=== PATIENT | male | born 1940 | race Caucasian/White ===

== ENCOUNTER 2020-10-05 17:07 | Inpatient (IN) | payer MEDICARE, BC ==
[~2020-10-05] VITALS: Ht 188 cm; Wt 83.0 kg
[2020-10-05 04:00] VITALS: BP 125/72
[2020-10-05] MEDS ORDERED: ONDANSETRON HCL/PF 4 MG/2 ML VIAL IVP ONE (17:30)
[2020-10-05] MEDS ORDERED: MORPHINE SULFATE INJ 2 MG/ML DISP.SYRIN IV ONE (17:30)
[2020-10-05] MEDS ORDERED: ONDANSETRON HCL/PF 4 MG/2 ML VIAL ONE (17:39)
[2020-10-05] MEDS ORDERED: MORPHINE SULFATE INJ 4 MG/ML DISP.SYRIN ONE (17:40)
[2020-10-05 18:04] LABS: BASOPHILS # (AUTO) 0.1 /CMM (0.0-0.2); BASOPHILS % (AUTO) 0.4 % (0.0-2.0); EOSINOPHILS % (AUTO) 0.6 % (0.0-6.0); HEMATOCRIT 42 % (39-51); HEMOGLOBIN 14.1 g/dL (13.5-17.5); LYMPHOCYTES # (AUTO) 1.6 /CMM (0.8-4.8); LYMPHOCYTES % (AUTO) 11.6 % (20.0-44.0); MEAN CORPUSCULAR HGB CONC 34 g/dl (31.0-36.0); MEAN CORPUSCULAR VOLUME 89 fL (80-96); MONOCYTES # (AUTO) 0.6 /CMM (0.1-1.30); MONOCYTES % (AUTO) 4.4 % (2.0-12.0); NEUTROPHILS # (AUTO) 11.2 /CMM (1.8-8.9); PLATELET COUNT (AUTO) 133 /CMM (150-450); RED BLOOD CELL COUNT(AUTO) 4.74 MIL/uL (4.5-6.0); WHITE BLOOD COUNT (AUTO) 13.5 K/uL (4.3-11.0)
[2020-10-05 18:22] LABS: CALCIUM, SERUM 9.8 mg/dL (8.5-10.1); CARBON DIOXIDE 24 mmol/L (21-32); CHLORIDE 109 mmol/L (98-107); CREATININE 1.2 mg/dL (0.6-1.3); GLUCOSE 162 mg/dL (74-106); POTASSIUM 4.3 mmol/L (3.5-5.1); SODIUM SERUM 145 mmol/L (136-145); UREA NITROGEN, BLOOD 29 mg/dL (7-18)
[2020-10-05] MEDS ORDERED: HYDROMORPHONE 1 MG/1 ML DISP.SYRIN ONE (19:54)
[2020-10-05] MEDS ORDERED: HYDROMORPHONE 1 MG/1 ML DISP.SYRIN IV ONE (20:30)
[2020-10-05 21:10] VITALS: BP 165/91
[2020-10-06] VITALS (12 sets, daily range): BP systolic 83–125; BP diastolic 61–79
[2020-10-06] MEDS ORDERED: ACETAMINOPHEN 325 MG TABLET PO PRN (00:30)
[2020-10-06] MEDS ORDERED: ZOLPIDEM TARTRATE 5 MG TABLET PO PRN (00:30)
[2020-10-06] MEDS ORDERED: Z GUARD REMEDY 2 OZ OINT TP PRN (00:30)
[2020-10-06] MEDS ORDERED: MAGNESIUM HYDROXIDE 30 ML UDC PO PRN (00:30)
[2020-10-06] MEDS ORDERED: ONDANSETRON HCL/PF 4 MG/2 ML VIAL IVP PRN (00:30)
[2020-10-06] MEDS ORDERED: MORPHINE SULFATE INJ 2 MG/ML DISP.SYRIN IV PRN (00:30)
[2020-10-06] MEDS: IV NS 0.9% 1,000 ML IV PRN ×2 (01:33→17:17)
[2020-10-06] MEDS: HYDROMORPHONE 1 MG/1 ML DISP.SYRIN IV PRN ×3 (02:27→11:50)
[2020-10-06] MEDS ORDERED: SEVOFLURANE 250 ML BOTTLE IH ONE (11:46)
[2020-10-06] MEDS ORDERED: BACITRACIN 50000 UNITS/VIAL ONE (11:46)
[2020-10-06] MEDS ORDERED: BUPIVACAINE 0.5 % PF 150 MG/30 ML VIAL ONE (11:46)
[2020-10-06] MEDS ORDERED: ANESTHESIA TRAY IN PYXIS 1 EA TRAY MC ONE (14:56)
[2020-10-06] MEDS ORDERED: FENTANYL PF 100MCG/2ML AMPUL ONE (15:47)
[2020-10-06] MEDS ORDERED: MIDAZOLAM HCL 2 MG/2ML VIAL ONE (15:47)
[2020-10-06] MEDS ORDERED: HYDROMORPHONE INJ 2 MG/ML DISP.SYRIN ONE (15:48)
[2020-10-07] VITALS: BP 104/73
[2020-10-07] MEDS: ANCEF 1 GM/50 ML D5W IV SCH ×2 (00:05→08:27)
[2020-10-07] MEDS: HYDROCODONE/APAP 5/325MG TABLET PO PRN ×2 (02:30→23:29)
[2020-10-07 04:00] VITALS: BP 125/72
[2020-10-07] MEDS: HYDROMORPHONE 1 MG/1 ML DISP.SYRIN IV PRN ×4 (05:08→17:43)
[2020-10-07 06:04] LABS: BASOPHILS % (AUTO) 0.1 % (0.0-2.0); HEMATOCRIT 27 % (39-51); HEMOGLOBIN 8.9 g/dL (13.5-17.5); LYMPHOCYTES # (AUTO) 1.2 /CMM (0.8-4.8); LYMPHOCYTES % (AUTO) 9.7 % (20.0-44.0); MEAN CORPUSCULAR HGB CONC 33 g/dl (31.0-36.0); MEAN CORPUSCULAR VOLUME 91 fL (80-96); MONOCYTES # (AUTO) 1.2 /CMM (0.1-1.30); MONOCYTES % (AUTO) 10.3 % (2.0-12.0); NEUTROPHILS # (AUTO) 9.6 /CMM (1.8-8.9); NEUTROPHILS % (AUTO) 79.9 % (43.0-81.0); PLATELET COUNT (AUTO) 101 /CMM (150-450); RED BLOOD CELL COUNT(AUTO) 2.95 MIL/uL (4.5-6.0)
[2020-10-07 07:14] LABS: ALANINE AMINOTRANSFERASE 16 U/L (12-78); ALBUMIN 2.6 g/dL (3.4-5.0); ALKALINE PHOSPHATASE 171 U/L (46-116); ASPARTATE AMINOTRANSFERASE 49 U/L (15-37); BILIRUBIN,TOTAL 0.5 mg/dL (0.2-1.0); CALCIUM, SERUM 7.9 mg/dL (8.5-10.1); CARBON DIOXIDE 19 mmol/L (21-32); CHLORIDE 111 mmol/L (98-107); CREATININE 1.6 mg/dL (0.6-1.3); GLUCOSE 124 mg/dL (74-106); PHOSPHORUS 3.5 mg/dL (2.5-4.9); POTASSIUM 4.1 mmol/L (3.5-5.1); SODIUM SERUM 143 mmol/L (136-145); UREA NITROGEN, BLOOD 40 mg/dL (7-18)
[2020-10-07 07:57] LABS: IRON, SERUM 17 ug/dl (50-175); TOTAL IRON BINDING CAPACITY 197 ug/dl (250-450)
[2020-10-07 08:00] VITALS: BP 170/80
[2020-10-07] MEDS: ASPIRIN 325 MG TABLET PO SCH (08:27)
[2020-10-07] MEDS: ENOXAPARIN SODIUM 40 MG/0.4 ML DISP.SYRIN SQ SCH (08:29)
[2020-10-07] MEDS: IV NS 0.9% 1,000 ML IV PRN (08:58)
[2020-10-07 09:01] LABS: FERRITIN 173 ng/mL (8-388)
[2020-10-07 09:41] LABS: PROSTATE SPECIFIC ANTIGEN SCR 319.12 ng/mL (0.00-4.00)
[2020-10-07] MEDS: MAG HYDROX/AL HYDROX/SIMETH 30 ML UDC PO PRN (10:09)
[2020-10-07 20:14] VITALS: BP 111/67
[2020-10-07 23:12] LABS: BILIRUBIN,URINE NEGATIVE (NEGATIVE); COLOR,URINE YELLOW (YELLOW); LEUKOCYTE ESTERASE ,URINE MODERATE (NEGATIVE); NITRITE, URINE NEGATIVE (NEGATIVE); PH,URINE 5.5 (5.0-8.0); PROTEIN,URINE 30 mg/dl (NEGATIVE); UGLUCOSE NEGATIVE (NEGATIVE); UROBILINOGEN,URINE 0.2 EU/dL (0.2)
[2020-10-07 23:22] LABS: URINE TOTAL PROTEIN 56.6 mg/dL (0-11.9)
[2020-10-07 23:31] LABS: BACTERIA,URINE Moderate /HPF (None Seen); MUCUS,URINE Few /LPF (None Seen); RBC,URINE 21-50 /HPF (0-2); SQUAMOUS EPITHELIAL CELL,UR Few /HPF (None Seen); WBC,URINE 51-80 /HPF (0-3)
[2020-10-08 00:12] LABS: CALCIUM OXALATE CRYSTALS,UR Many /HPF (None Seen); EOSINOPHIL,URINE None Seen
[2020-10-08] MEDS: IV NS 0.9% 1,000 ML IV PRN ×2 (04:06→16:56)
[2020-10-08 07:30] LABS: ALBUMIN 2.4 g/dL (3.4-5.0); CALCIUM, SERUM 7.9 mg/dL (8.5-10.1); CREATININE 1.2 mg/dL (0.6-1.3); POTASSIUM 3.6 mmol/L (3.5-5.1); TOTAL PROTEIN, SERUM 5.1 g/dL (6.4-8.2)
[2020-10-08 08:00] VITALS: BP 118/64
[2020-10-08] MEDS: ASPIRIN 325 MG TABLET PO SCH (08:05)
[2020-10-08] MEDS: ENOXAPARIN SODIUM 40 MG/0.4 ML DISP.SYRIN SQ SCH (08:06)
[2020-10-08 08:38] LABS: BASOPHILS % (AUTO) 0.4 % (0.0-2.0); EOSINOPHILS % (AUTO) 0.3 % (0.0-6.0); HEMATOCRIT 24 % (39-51); HEMOGLOBIN 8.1 g/dL (13.5-17.5); LYMPHOCYTES % (AUTO) 10.8 % (20.0-44.0); MEAN CORPUSCULAR HGB CONC 33 g/dl (31.0-36.0); MEAN CORPUSCULAR VOLUME 92 fL (80-96); MONOCYTES # (AUTO) 0.8 /CMM (0.1-1.30); MONOCYTES % (AUTO) 8.4 % (2.0-12.0); NEUTROPHILS # (AUTO) 7.7 /CMM (1.8-8.9); NEUTROPHILS % (AUTO) 80.1 % (43.0-81.0); PLATELET COUNT (AUTO) 86 /CMM (150-450); RED BLOOD CELL COUNT(AUTO) 2.65 MIL/uL (4.5-6.0); WHITE BLOOD COUNT (AUTO) 9.7 K/uL (4.3-11.0)
[2020-10-08] MEDS: HYDROMORPHONE 1 MG/1 ML DISP.SYRIN IV PRN (09:47)
[2020-10-08] MEDS: ENSURE ENLIVE 237 ML LIQUID (VANILLA) PO SCH ×2 (13:07→16:23)
[2020-10-08] MEDS: SOD FERRIC GLUC 125 MG in IV NS 0.9% 100 ML IV SCH (14:40)
[2020-10-08 16:00] VITALS: BP 143/78
[2020-10-08 20:00] VITALS: BP 122/71
[2020-10-08] MEDS: HYDROCODONE/APAP 5/325MG TABLET PO PRN (20:46)
[2020-10-08] MEDS: MAG HYDROX/AL HYDROX/SIMETH 30 ML UDC PO PRN (23:00)
[2020-10-09 05:07] LABS: PTH, INTACT 14 pg/mL (15-65)
[2020-10-09] MEDS: IV NS 0.9% 1,000 ML IV PRN (05:34)
[2020-10-09 06:25] LABS: BASOPHILS % (AUTO) 0.2 % (0.0-2.0); EOSINOPHILS % (AUTO) 0.2 % (0.0-6.0); HEMATOCRIT 23 % (39-51); HEMOGLOBIN 7.9 g/dL (13.5-17.5); LYMPHOCYTES # (AUTO) 1.1 /CMM (0.8-4.8); LYMPHOCYTES % (AUTO) 10.2 % (20.0-44.0); MEAN CORPUSCULAR HGB CONC 35 g/dl (31.0-36.0); MEAN CORPUSCULAR VOLUME 89 fL (80-96); MONOCYTES # (AUTO) 0.8 /CMM (0.1-1.30); MONOCYTES % (AUTO) 7.9 % (2.0-12.0); NEUTROPHILS # (AUTO) 8.5 /CMM (1.8-8.9); NEUTROPHILS % (AUTO) 81.5 % (43.0-81.0); PLATELET COUNT (AUTO) 98 /CMM (150-450); RED BLOOD CELL COUNT(AUTO) 2.56 MIL/uL (4.5-6.0); WHITE BLOOD COUNT (AUTO) 10.5 K/uL (4.3-11.0)
[2020-10-09 06:38] LABS: CALCIUM, SERUM 7.6 mg/dL (8.5-10.1); PHOSPHORUS 1.7 mg/dL (2.5-4.9); POTASSIUM 3.6 mmol/L (3.5-5.1)
[2020-10-09] MEDS: HYDROCODONE/APAP 5/325MG TABLET PO PRN ×2 (07:37→08:42)
[2020-10-09 08:00] VITALS: BP 144/83
[2020-10-09] MEDS: ENSURE ENLIVE 237 ML LIQUID (VANILLA) PO SCH ×2 (08:15→16:23)
[2020-10-09] MEDS: ASPIRIN 325 MG TABLET PO SCH (08:18)
[2020-10-09] MEDS: ENOXAPARIN SODIUM 40 MG/0.4 ML DISP.SYRIN SQ SCH (08:41)
[2020-10-09] MEDS: NEUTRA PHOS 1 POWD.PACKET PO SCH ×2 (09:18→16:23)
[2020-10-09] MEDS ORDERED: MAG HYDROX/AL HYDROX/SIMETH 30 ML UDC PO PRN (10:00)
[2020-10-09] MEDS: MAG HYDROX/AL HYDROX/SIMETH 30 ML UDC PO PRN ×2 (10:04→20:48)
[2020-10-09] MEDS: SOD FERRIC GLUC 125 MG in IV NS 0.9% 100 ML IV SCH (14:00)
[2020-10-09 16:00] VITALS: BP 113/63
[2020-10-09 20:00] VITALS: BP 123/69
[2020-10-10 06:29] LABS: ALBUMIN 1.8 g/dL (3.4-5.0); BILIRUBIN,TOTAL 1.3 mg/dL (0.2-1.0); CALCIUM, SERUM 7.8 mg/dL (8.5-10.1); CREATININE 0.8 mg/dL (0.6-1.3); PHOSPHORUS 1.8 mg/dL (2.5-4.9); POTASSIUM 3.9 mmol/L (3.5-5.1); TOTAL PROTEIN, SERUM 4.7 g/dL (6.4-8.2)
[2020-10-10 07:27] LABS: BASOPHILS % (AUTO) 0.5 % (0.0-2.0); EOSINOPHILS % (AUTO) 1.9 % (0.0-6.0); LYMPHOCYTES # (AUTO) 0.9 /CMM (0.8-4.8); LYMPHOCYTES % (AUTO) 11.4 % (20.0-44.0); MEAN CORPUSCULAR HGB CONC 34 g/dl (31.0-36.0); MEAN CORPUSCULAR VOLUME 90 fL (80-96); MONOCYTES # (AUTO) 0.6 /CMM (0.1-1.30); MONOCYTES % (AUTO) 7.4 % (2.0-12.0); NEUTROPHILS # (AUTO) 6.5 /CMM (1.8-8.9); NEUTROPHILS % (AUTO) 78.8 % (43.0-81.0); PLATELET COUNT (AUTO) 127 /CMM (150-450); RED BLOOD CELL COUNT(AUTO) 2.23 MIL/uL (4.5-6.0); WHITE BLOOD COUNT (AUTO) 8.2 K/uL (4.3-11.0)
[2020-10-10 07:35] LABS: HEMATOCRIT 20 % (39-51)
[2020-10-10 07:37] LABS: HEMOGLOBIN 6.9 g/dL (13.5-17.5)
[2020-10-10] MEDS ORDERED: NEUTRA PHOS 1 POWD.PACKET PO SCH (08:00)
[2020-10-10] MEDS: ASPIRIN 325 MG TABLET PO SCH (08:02)
[2020-10-10] MEDS: ENSURE ENLIVE 237 ML LIQUID (VANILLA) PO SCH (08:03)
[2020-10-10 08:16] VITALS: BP_SYST 127; BP_SYST 139; BP_DIAS 73; BP_DIAS 81
[2020-10-10] MEDS: ENOXAPARIN SODIUM 40 MG/0.4 ML DISP.SYRIN SQ SCH (08:51)
[2020-10-10] MEDS: HYDROCODONE/APAP 5/325MG TABLET PO PRN ×2 (11:12→15:38)
[2020-10-10] MEDS ORDERED: ACET325T53 PO (12:08)
[2020-10-10] MEDS ORDERED: LACT-246 PO (12:08)
[2020-10-10] MEDS ORDERED: ENOX40DI SQ (12:08)
[2020-10-10] MEDS ORDERED: ASPI-992 PO (12:08)
[2020-10-10] MEDS ORDERED: HYDR-3972 PO (12:08)
[2020-10-10 13:15] VITALS: BP 122/90
[2020-10-10 13:41] VITALS: BP 119/82
[2020-10-10 14:41] VITALS: BP 121/75
[2020-10-10 15:51] LABS: EOSINOPHILS % (MANUAL) 3 % (0-4); LYMPHOCYTES % (MANUAL) 5 % (16-48); MONOCYTES % (MANUAL) 3 % (0-11.0); NEUTROPHILS % (MANUAL) 89 (42-76)
[2020-10-10 15:55] VITALS: BP 128/70
[2020-10-11 11:07] LABS: *SPE A/G RATIO 1.2 (0.7-1.7); *SPE ALBUMIN 2.5 g/dL (2.9-4.4); *SPE ALPHA-1-GLOBULIN 0.4 g/dL (0.0-0.4); *SPE ALPHA-2-GLOBULIN 0.6 g/dL (0.4-1.0); *SPE BETA GLOBULIN 0.7 g/dL (0.7-1.3); *SPE GLOBULIN, TOTAL 2.1 g/dL (2.2-3.9); *SPE M-SPIKE Not Observed g/dL (Not Observed); *SPEGAMMA GLOBULIN 0.5 g/dL (0.4-1.8)
== END 2020-10-10 18:40 | DRG 480 ==
LOC: ER 17:10 → TELE 20:52 → MED 10-07 10:07
PROVIDERS: ADMIT Nurse Practitioner Acute Care; ATTEND Nurse Practitioner Acute Care
PROC: 0QS606Z Reposition Right Upper Femur with Intramedullary Internal Fixation Device, Open Approach (ICD-10-PCS; principal; 2020-10-06)
PROC: 30233N1 Transfusion of Nonautologous Red Blood Cells into Peripheral Vein, Percutaneous Approach (ICD-10-PCS; 2020-10-10)
DX: M80.851A Other osteoporosis with current pathological fracture, right femur, initial encounter for fracture (principal); N17.0 Acute kidney failure with tubular necrosis; D68.9 Coagulation defect, unspecified; W19.XXXA Unspecified fall, initial encounter; Y92.009 Unspecified place in unspecified non-institutional (private) residence as the place of occurrence of the external cause; D69.6 Thrombocytopenia, unspecified; I48.91 Unspecified atrial fibrillation; Z20.822 Contact with and (suspected) exposure to COVID-19; D64.9 Anemia, unspecified; D72.829 Elevated white blood cell count, unspecified; I70.0 Atherosclerosis of aorta; N40.0 Benign prostatic hyperplasia without lower urinary tract symptoms; R73.9 Hyperglycemia, unspecified; I12.9 Hypertensive chronic kidney disease with stage 1 through stage 4 chronic kidney disease, or unspecified chronic kidney disease; N18.9 Chronic kidney disease, unspecified; N13.9 Obstructive and reflux uropathy, unspecified
CPT/HCPCS: 36415; 71045-TC; 73501; 73502; 73564-TC; 73700-TC; 76770-TC; 80048-TC; 80053-TC; 81001; 82550-TC; 82553; 82570-TC; 82728-TC; 83540-TC; 83735-TC; 83970; 84100-TC; 84153-TC; 84154-TC; 84155; 84155-TC; 84165; 84300-TC; 84484-TC; 85025-TC; 85610-TC; 85730-TC; 86850-TC; 87081-TC; 87086-TC; 93307-TC; 94799-TC; 97110-TC; 97116-TC; 97530-TC; A6209; A6253; A6403; C1713; C9803; G0378; J0690; J1100; J1170; J1650; J1885; J2250; J2270; J2405; J2704; J2765; J2916; J3010; J3490; J7030; J7050; J7060; P9016